=== PATIENT | female | born 1975 | race African-American/Black ===

== ENCOUNTER 2018-03-02 13:06 | Observation (INO) | payer MEDICAID, OTHER ==
[~2018-03-02] VITALS: Ht 175.3 cm; Wt 117.9 kg
[2018-03-02 14:25] LABS: EOSINOPHILS % 0.9 % (0.0-5.0); HEMATOCRIT. 42.2 % (36.0-48.0); HEMOGLOBIN. 14.2 g/dL (12.0-16.0); LYMPHOCYTES % 40.8 % (20.0-50.0); MEAN CORPUSCULAR HEMOGLOBIN 29.7 pg (28.0-32.0); MEAN CORPUSCULAR VOLUME 88.3 fL (81.0-99.0); MEAN PLATELET VOLUME 8.4 fl (7.4-10.4); MONOCYTES % 4.5 % (2.0-8.0); NEUTROPHILS % 52.8 % (40.0-76.0); PLATELET 260 x1000/uL (130-400); RED BLOOD CELL COUNT 4.78 mill/uL (4.2-5.4); RED CELL DISTRIBUTION WIDTH 13.9 % (11.6-14.6)
[2018-03-02 14:31] LABS: CHLORIDE 109 mEq/L (98-107)
[2018-03-02 14:33] LABS: PROTHROMBIN TIME 10.6 sec (9.4-11.6)
[2018-03-02 14:35] LABS: HCG SCREEN NEGATIVE
[2018-03-02] MEDS ORDERED: ASPIRIN 81MG TABLET PO STA (15:07)
[2018-03-02 15:25] LABS: D-DIMER < 0.19 mg/L FEU (<0.50); PARTIAL THROMBOPLASTIN TIME 28.3 sec (23.4-31.0)
[2018-03-02] MEDS ORDERED: MORPHINE SULFATE 4 MG/ML CPJ (NOT FOR IM USE) IV STA (17:28)
[2018-03-02] MEDS ORDERED: ONDANSETRON HCL 4MG/2ML VIAL IV STA (17:28)
[2018-03-02] MEDS ORDERED: GUAIFENESIN 200MG/10ML SUGAR FREE UDC PO PRN (17:30)
[2018-03-02] MEDS ORDERED: NA PHOS,M-B/NA PHOS,DI-BA ENEMA 118ML PR PRN (17:30)
[2018-03-02] MEDS ORDERED: ONDANSETRON HCL 4MG/2ML VIAL IV PRN (17:30)
[2018-03-02] MEDS ORDERED: MAGNESIUM/ALUMINUM HYDROXIDE/SIMETHICONE 30ML UDC PO PRN (17:30)
[2018-03-02] MEDS ORDERED: ACETAMINOPHEN 325MG TABLET PO PRN (17:30)
[2018-03-02] MEDS ORDERED: ACETAMINOPHEN 650MG/20.3ML UDC GT PRN (17:30)
[2018-03-02] MEDS ORDERED: HYDROCODONE/ACETAMINOPHEN 10/325MG TABLET PO PRN (17:30)
[2018-03-02] MEDS ORDERED: DOCUSATE SODIUM 100MG CAPSULE PO PRN (17:30)
[2018-03-02] MEDS ORDERED: IPRATROPIUM/ALBUTEROL 0.5-3(2.5)MG/3ML NEB INH PRN (17:30)
[2018-03-02] MEDS ORDERED: ACETAMINOPHEN 650MG SUPP PR PRN (17:30)
[2018-03-02] MEDS ORDERED: HYDROCODONE/ACETAMINOPHEN 5/325MG TABLET PO PRN (17:30)
[2018-03-02] MEDS ORDERED: LORAZEPAM 0.5MG TABLET PO PRN (17:30)
[2018-03-02] MEDS ORDERED: DIPHENHYDRAMINE 50MG/ML VIAL IV PRN (17:30)
[2018-03-02] MEDS ORDERED: CLONIDINE 0.1MG TABLET PO PRN (17:45)
[2018-03-02] MEDS: NITROGLYCERIN 0.4MG TABLET SL SL PRN (20:03)
[2018-03-02 22:17] VITALS: BP 170/96
[2018-03-02 23:21] LABS: CREATINE KINASE 115 IU/L (26-192); CREATINE KINASE MB FRACTION 0.8 ng/mL (0.5-3.6)
[2018-03-03] VITALS (7 sets, daily range): BP systolic 113–170; BP diastolic 46–96
[2018-03-03] MEDS: NITROGLYCERIN 0.4MG TABLET SL SL PRN (05:52)
[2018-03-03 07:35] LABS: CHLORIDE 107 mEq/L (98-107)
[2018-03-03 07:39] LABS: BASOPHILS % 0.3 % (0.0-2.0); EOSINOPHILS % 1.2 % (0.0-5.0); HEMATOCRIT. 38.7 % (36.0-48.0); HEMOGLOBIN. 13.2 g/dL (12.0-16.0); LYMPHOCYTES % 41.9 % (20.0-50.0); MEAN CORPUSCULAR HEMOGLOBIN 29.9 pg (28.0-32.0); MEAN CORPUSCULAR VOLUME 87.8 fL (81.0-99.0); MEAN PLATELET VOLUME 8.9 fl (7.4-10.4); MONOCYTES % 6.3 % (2.0-8.0); NEUTROPHILS % 50.3 % (40.0-76.0); PLATELET 250 x1000/uL (130-400); RED BLOOD CELL COUNT 4.41 mill/uL (4.2-5.4); RED CELL DISTRIBUTION WIDTH 13.9 % (11.6-14.6)
[2018-03-03 07:50] LABS: LDL CHOLESTEROL 130 mg/dL (5-100)
[2018-03-03 07:51] LABS: CREATINE KINASE 106 IU/L (26-192); CREATINE KINASE MB FRACTION 0.8 ng/mL (0.5-3.6)
[2018-03-03 07:52] LABS: T4 FREE 1.07 ng/dL (0.76-1.46)
[2018-03-03 07:55] LABS: HDL CHOLESTEROL 30 mg/dL (40-59)
[2018-03-03] MEDS ORDERED: LISINOPRIL 5MG TABLET PO SCH ×2 (09:00→21:00)
[2018-03-03] MEDS ORDERED: REGADENOSON 0.4 MG/5 ML IV ONE (10:15)
[2018-03-03 13:07] LABS: CLARITY URINE CLOUDY (CLEAR); COLOR URINE YELLOW (YELLOW); KETONES URINE NEGATIVE (NEGATIVE); LEUKOCYTE ESTERASE URINE 2+ (NEGATIVE); NITRITE URINE NEGATIVE (NEGATIVE); OCCULT BLOOD URINE 1+ (NEGATIVE); PH URINE 8.5 (4.5-8.0); PROTEIN URINE NEGATIVE (NEGATIVE); SPECIFIC GRAVITY URINE 1.012 (1.005-1.030); UROBILINOGEN URINE 0.2 E.U./dL (0.2-1.0)
[2018-03-03 13:30] LABS: *AMPHETAMINES SCREEN URINE NEGATIVE (NEGATIVE); *BARBITURATES SCREEN URINE NEGATIVE (NEGATIVE); *BENZODIAZEPINES SCREEN URINE NEGATIVE (NEGATIVE); *COCAINE SCREEN URINE NEGATIVE (NEGATIVE)
[2018-03-03 13:31] LABS: METHADONE URINE SCREEN NEGATIVE (NEGATIVE); OPIATES URINE SCREEN NEGATIVE (NEGATIVE); PHENCYCLIDINE URINE SCREEN NEGATIVE (NEGATIVE)
[2018-03-03 13:33] LABS: CANNABINOID URINE SCREEN PRESUMTIVE POSITIVE (NEGATIVE)
[2018-03-03] MEDS ORDERED: ASPIRIN 81MG TABLET PO SCH (18:30)
[2018-03-03] MEDS ORDERED: NITROGLYCERIN 0.4MG TABLET SL SL PRN (18:30)
[2018-03-03] MEDS ORDERED: METRONIDAZOLE 500MG TABLET PO SCH (21:00)
[2018-03-04] VITALS: BP 146/62
== END 2018-03-04 00:40 | disposition home or self-care (01) ==
LOC: ER 13:06 → 8WST 17:10 → INTOOBSV 17:10 → EDBEDREQ 17:13 → ENRESERV 19:10
PROVIDERS: ADMIT Internal Medicine; ATTEND Internal Medicine
DX: R07.89 Other chest pain (principal); F17.210 Nicotine dependence, cigarettes, uncomplicated; I10 Essential (primary) hypertension; Z82.49 Family history of ischemic heart disease and other diseases of the circulatory system; Z80.0 Family history of malignant neoplasm of digestive organs; Z79.899 Other long term (current) drug therapy; E87.6 Hypokalemia; E46 Unspecified protein-calorie malnutrition; R55 Syncope and collapse; R00.1 Bradycardia, unspecified
CPT/HCPCS: 36415; 71045; 80053; 80061; 80305; 81003; 82550; 82553; 83690; 83880; 84439; 84443; 84481; 84484; 84703; 85025; 85379; 85610; 85730; 93005; 93306; 93970; 96374; 97162; 99285; G0378; J2405

== ENCOUNTER 2018-03-08 13:46 | Emergency (ER) | payer MEDICAID ==
[~2018-03-08] VITALS: Ht 175.3 cm; Wt 111.0 kg
[2018-03-08 14:55] LABS: BASOPHILS % 0.5 % (0.0-2.0); CHLORIDE 107 mEq/L (98-107); EOSINOPHILS % 0.4 % (0.0-5.0); HEMATOCRIT. 39.6 % (36.0-48.0); HEMOGLOBIN. 13.5 g/dL (12.0-16.0); LYMPHOCYTES % 33.5 % (20.0-50.0); MEAN CORPUSCULAR HEMOGLOBIN 29.8 pg (28.0-32.0); MEAN CORPUSCULAR VOLUME 87.2 fL (81.0-99.0); MEAN PLATELET VOLUME 8.5 fl (7.4-10.4); MONOCYTES % 6.2 % (2.0-8.0); NEUTROPHILS % 59.4 % (40.0-76.0); PLATELET 254 x1000/uL (130-400); RED BLOOD CELL COUNT 4.54 mill/uL (4.2-5.4); RED CELL DISTRIBUTION WIDTH 13.7 % (11.6-14.6)
[2018-03-08 18:43] VITALS: BP 147/83
[2018-03-08] MEDS ORDERED: IOHEXOL-350 100 ML BOTTLE ONE (18:54)
== END 2018-03-08 18:45 | disposition home or self-care (01) ==
LOC: ER 13:46
DX: R07.9 Chest pain, unspecified (principal); R42 Dizziness and giddiness; R55 Syncope and collapse; I10 Essential (primary) hypertension; F17.200 Nicotine dependence, unspecified, uncomplicated; Z88.0 Allergy status to penicillin
CPT/HCPCS: 36415; 71045; 71275; 80053; 81025; 83880; 84484; 85025; 85379; 93005; 99285; Q9967

== ENCOUNTER 2022-09-21 08:10 | Emergency (ER) | payer MEDICAID ==
[~2022-09-21] VITALS: Ht 172.7 cm; Wt 100.0 kg
[2022-09-21] MEDS ORDERED: KETOROLAC 30MG/ML VIAL IV STA (08:24)
[2022-09-21] MEDS ORDERED: SODIUM CHLORIDE 0.9% 1,000 ML IV ONE (08:30)
[2022-09-21] MEDS ORDERED: METOCLOPRAMIDE HCL 10MG/2ML VIAL IV ONE (08:30)
[2022-09-21 10:17] LABS: BASOPHILS % 0.3 % (0.0-2.0); HEMATOCRIT. 41.1 % (36.0-48.0); HEMOGLOBIN. 13.8 g/dL (12.0-16.0); LYMPHOCYTES % 20.2 % (20.0-50.0); MEAN CORPUSCULAR HEMOGLOBIN 29.4 pg (28.0-32.0); MEAN CORPUSCULAR VOLUME 87.3 fL (81.0-99.0); MEAN PLATELET VOLUME 8.9 fl (7.4-10.4); NEUTROPHILS % 68.5 % (40.0-76.0); PLATELET 212 x1000/uL (130-400); RED CELL DISTRIBUTION WIDTH 14.3 % (11.6-14.6)
[2022-09-21 10:19] LABS: CHLORIDE 100 mEq/L (98-107)
[2022-09-21 10:25] LABS: CLARITY URINE TURBID (CLEAR); COLOR URINE DARK YELLOW (YELLOW); KETONES URINE TRACE (NEGATIVE); LEUKOCYTE ESTERASE URINE NEGATIVE (NEGATIVE); NITRITE URINE NEGATIVE (NEGATIVE); OCCULT BLOOD URINE 2+ (NEGATIVE); PROTEIN URINE 1+ (NEGATIVE); SPECIFIC GRAVITY URINE 1.026 (1.005-1.030)
[2022-09-21] MEDS ORDERED: ACETAMINOPHEN 325MG TABLET PO ONE (10:30)
[2022-09-21 11:00] VITALS: BP 148/68
[2022-09-21 11:04] LABS: INR 1.1; PROTHROMBIN TIME 11.6 sec (9.6-11.0)
[2022-09-21] MEDS ORDERED: METO-293 PO (12:16)
[2022-09-21] MEDS ORDERED: TOPUD PO (12:16)
== END 2022-09-21 14:26 | disposition home or self-care (01) ==
LOC: ER 08:10 → CANBEDREQ 13:32 → ER 14:26
DX: U07.1 COVID-19 (principal); R51.9 Headache, unspecified; I10 Essential (primary) hypertension; F12.10 Cannabis abuse, uncomplicated; Z88.0 Allergy status to penicillin
CPT/HCPCS: 36415; 71045; 80053; 81003; 83605; 84145; 85025; 85610; 87040; 87426; 87804; 96361; 96374; 96375; 99284; C9803; J1885; J2765; J7030

== ENCOUNTER 2023-02-04 10:38 | Emergency (ER) | payer MEDICAID, OTHER ==
[~2023-02-04] VITALS: Ht 175.3 cm; Wt 109.0 kg
[~2023-02-04 10:38] MED LIST: METO-293 PO; TOPUD PO
[2023-02-04 10:49] VITALS: BP 159/89
[2023-02-04 11:33] LABS: CHLORIDE 112 mEq/L (98-107)
[2023-02-04 11:36] LABS: BASOPHILS % 0.4 % (0.0-2.0); EOSINOPHILS % 0.8 % (0.0-5.0); HEMATOCRIT. 41.5 % (36.0-48.0); HEMOGLOBIN. 14.3 g/dL (12.0-16.0); LYMPHOCYTES % 38.5 % (20.0-50.0); MEAN CORPUSCULAR HEMOGLOBIN 30.3 pg (28.0-32.0); MEAN CORPUSCULAR VOLUME 88.2 fL (81.0-99.0); MEAN PLATELET VOLUME 8.6 fl (7.4-10.4); MONOCYTES % 5.2 % (2.0-8.0); NEUTROPHILS % 55.1 % (40.0-76.0); PLATELET 290 x1000/uL (130-400); RED CELL DISTRIBUTION WIDTH 14.5 % (11.6-14.6)
[2023-02-04 11:37] LABS: INR 0.9; PROTHROMBIN TIME 10.2 sec (9.6-11.0)
[2023-02-04] MEDS ORDERED: IBUPROFEN 600MG TABLET PO STA (13:06)
== END 2023-02-04 15:31 | disposition home or self-care (01) ==
LOC: ER 10:38
DX: R07.9 Chest pain, unspecified (principal); R06.02 Shortness of breath; I10 Essential (primary) hypertension; F12.90 Cannabis use, unspecified, uncomplicated; Z88.0 Allergy status to penicillin
CPT/HCPCS: 36415; 71045; 80053; 84484; 85025; 93005; 99285

== ENCOUNTER 2024-09-16 19:00 | Emergency (ER) | payer OTHER ==
[~2024-09-16] VITALS: Ht 180.3 cm; Wt 111.1 kg
[2024-09-16 19:01] VITALS: O2SAT 100
[2024-09-16 19:10] VITALS: BP 167/83; PULSE 74; RESP 16; TEMP 98.3; O2SAT 100
[2024-09-16] MEDS: TETRACAINE 0.5% OPHTH DROPS 4ML RIGHTEYE ONE (20:30)
[2024-09-16] MEDS: FLUORESCEIN SODIUM 1MG/STRIP RIGHTEYE ONE (20:30)
== END 2024-09-16 22:55 | disposition home or self-care (01) ==
LOC: ER 19:05
DX: H11.31 Conjunctival hemorrhage, right eye (principal); I10 Essential (primary) hypertension; Z88.0 Allergy status to penicillin
CPT/HCPCS: 99281